=== PATIENT | female | born 1965 | race African-American/Black ===

== ENCOUNTER 2017-11-15 12:17 | Emergency (ER) | payer OTHER ==
[2017-11-15 12:33] VITALS: BP 143/78; PULSE 81; TEMP 97.9; BMI 44.4
--- NOTE | 2017-11-15 14:14 | PDOC ---
History of Present Illness - General Chief Complaint: Injury Stated Complaint: ANKLE PAIN (PCP SENT) Time Seen by Provider: 11/15/17 13:19 - History of Present Illness Initial Comments: 11/15/17 14:09 CHIEF COMPLAINT: L ankle pain HISTORY OF PRESENT ILLNESS: 52 yo obese F presents to fast track with pain to L ankle s/p "missing a step" 1 week ago. She is ambulatory and states that the pain is localized to "the soft area close to the bone." She denies any other symptoms. No recent travel or sick contacts. PAST MEDICAL HISTORY: Denies past medical history FAMILY HISTORY: Denies SOCIAL HISTORY: Denies tobacco, alcohol, illicit drug use. SURGICAL HISTORY: Denies ALLERGIES: No known drug allergies REVIEW OF SYSTEMS General/Constitutional:Denies weakness Cardiovascular: Denies shortness of breath. Musculoskeletal: L ankle pain. Denies joint or muscle swelling or pain. Denies neck or back pain. Neurologic: Denies loss of sensation. PHYSICAL EXAM General Appearance: Well-appearing, appropriately dressed. No apparent distress. HEENT: EOMI, PERRLA, normal ENT inspection, normal voice, TMs normal, pharynx normal. No conjunctival pallor. No photophobia, scleral icterus. Cardiovascular: RRR. S1, S2. Musculoskeletal/Extremities: Minimal tenderness to posterior L lateral malleolus , no swelling, ecchymosis, erythema. No tenderness to base of 5th metatarsal. No calf tenderness. Patient fully ambulatory. Normal inspection. FROM of all extremities, normal capillary refill. Pelvis Stable. Integumentary: Appropriate color, dry, warm. No cyanosis, erythema, jaundice or rash Neurologic: cardiology manager II-XII intact. Fully oriented, alert. Appropriate mood/affect. Motor strength 5/5. No appreciable EOM palsy, facial droop or sensory deficit. Past History - Past Medical History Allergies/Adverse Reactions: Allergies Allergy/AdvReac Type Severity Reaction Status Date / Time No Known Allergies Allergy Verified 11/15/17 12:33 Home Medications: Ambulatory Orders Diclofenac Sodium [Voltaren -] 75 mg PO BID #14 tablet. 11/15/17 COPD: No HTN: Yes - Suicide/Smoking/Psychosocial Hx Smoking History: Never smoked Hx Alcohol Use: No Drug/Substance Use Hx: No Substance Use Type: None *Physical Exam - Vital Signs Last Vital Signs Temp Pulse Resp BP Pulse Ox 97.9 F 81 16 143/78 99 11/15/17 12:31 11/15/17 12:31 11/15/17 12:31 11/15/17 12:31 11/15/17 12:31 ED Treatment Course - RADIOLOGY Radiology Studies Ordered: Category Date Time Status ANKLE & FOOT-LEFT* [RAD] Stat Radiology 11/15/17 12:56 Completed Medical Decision Making - Medical Decision Making 11/15/17 14:12 52 yo obese F presents to fast track with pain to L ankle s/p "missing a step" 1 week ago. L ankle x-ray x-ray negative Will discharge with NSAIDS, crutches, baylee bandage. Advised patient to take medication as prescribed and follow up with ortho next week. Advised patient of signs and symptoms for return to ED. Patient verbalized understanding and agrees to plan. *DC/Admit/Observation/Transfer Diagnosis at time of Disposition: Left ankle sprain - Discharge Dispostion Disposition: HOME Condition at time of disposition: Stable Admit: No - Prescriptions Prescriptions: Diclofenac Sodium [Voltaren -] 75 mg PO BID #14 tablet.dr - Referrals Referrals: Berto Ames MD [Staff Physician] - Michael Oglebsy MD [Staff Physician] - - Patient Instructions Printed Discharge Instructions: DI for Ankle Sprain, How To Perform RICE (Rest , Ice, Compress, Elevate) Additional Instructions: Please take medication as prescribed. As discussed, if your symptoms do not improve in 5-7 days, please follow up with an orthopedics for further evaluation and a possible MRI or physical therapy. If you experience any loss of sensation to your extremities, pain to your calf, or increased pain to your ankle, please return to the ER. - Post Discharge Activity
== END 2017-11-15 14:32 | disposition home or self-care (01) ==
LOC: JERFT 12:17
DX: S93.402A Sprain of unspecified ligament of left ankle, initial encounter (principal); X58.XXXA Exposure to other specified factors, initial encounter; Y93.89 Activity, other specified; Y92.9 Unspecified place or not applicable
CPT/HCPCS: 73610-TC-LT-FY; 73630-TC-LT; 99281-25

== ENCOUNTER 2020-05-28 12:52 | Emergency (ER) | payer OTHER ==
[2020-05-28 12:59] VITALS: BP 146/79; TEMP 97.4; BMI 45.6
--- NOTE | 2020-05-28 13:16 | PDOC ---
Attending Attestation - Resident Resident Name: Avinash Headley - HPI HPI: 05/28/20 14:03 Pt presents to the ED complaining of facial swelling and pain, along with pain in her L first molar. Denies fever, nausea or vomiting. Denies trismus, difficulty swallowing or breathing. Called PCP, who prescribed augmentin. She has taken three doses with no improvement. Presented to the ED because she was seen in urgent care and told that she might need IV antibiotics. - Physicial Exam PE: 05/28/20 14:17 Agree with resident exam. patient is alert and oriented and in no acute distress. + facial swelling that affects her L maxilla. no trismus. No tongue swelling. No drooling. - Medical Decision Making 05/28/20 14:22 Pt presents to the ED complaining of facial swelling and tooth pain without systemic signs of infection. No trismus or clear periapical abscess on exam. Symptoms are most consistent with dental abscess. Will start on clindamycin and discharge home with instructions to follow up with dental tomorrow. 05/28/20 14:23 Discharge - Discharge Information Problems reviewed: Yes Clinical Impression/Diagnosis: Tooth pain Condition: Stable Disposition: HOME - Additional Discharge Information Prescriptions: Clindamycin [Cleocin -] 300 mg PO Q8H 7 Days #21 capsule - Follow up/Referral Referrals: [facility] ([facility]) [Outside] Remi Cali DDS [Staff Physician] - Nate Anderson MD [Primary Care Provider] - Caroline Calhoun DDS [Non Staff, Medical] - Magdiel Patel DDS [Non Staff, Medical] - Fransisco Cancino DDS [Non Staff, Medical] - - Patient Discharge Instructions Patient Printed Discharge Instructions: DI for Dental Pain Additional Instructions: Please make an appointment with a dentist. Referrals are provided here. Information for the [facility] provided at the end of this page. Please take clindamycin 300 mg every 8 hours for 7 days, until you are able to see a dentist. Please take Motrin as needed for your pain (follow instructions on the package). If you experience any new, worsening, or concerning symptoms, including worsening swelling, tongue swelling, drooling, inability to breathe or swallow, fever, chills, or any other concerns, please return to the emergency department. [facility]: [facility]: [facility] and the [facility] dental clinics provide a full range of dental care from basic preventive services to the most complex surgical procedures. We have General Dentists, Pediatric Dentists and Oral and Maxillofacial Surgeons on-site every day. Additionally, we have the ability to provide advanced care in implants, endodontics (root canals), periodontics (gum disease) and dental anesthesiology (sedation dentistry). We have the most modern equipment including lasers, electronic dental records, digital xrays and cone beam CT scans. Our services include: Fillings Cleanings (prophylaxis) Pediatric Dental Services [facility] Cosmetic Dentistry- including bleaching and veneers Partial and Complete Dentures Dental Implants and Bone Grafting Periodontal treatment and periodontal surgery Endodontic (root canal) treatment Extractions including [place] teeth Apicoectomy (surgical root canal) Biopsies and treatment of Pathology and Infections Temporomandibular Disorder / Facial Pain treatment Management of Cleft Lip and Palate patients Orthognathic (Jaw) Surgery Facial Reconstruction Treatment of Mandibular and Facial Fractures IV Sedation Our mission is to serve the dental and oral health needs of the [place]. Through our clinics, emergency room coverage and in-patient care, we treat many different patients including those with special needs, the handicapped, and the medically compromised. For more information on our services, please contact one of our centers: [address] [place], [place] [address] General Dentistry, Pediatric Dentistry, and Oral / Maxillofacial Surgery Clinic For an appointment call: [facility] [address] [place] [id number] General Dentistry, Pediatric Dentistry, and Oral / Maxillofacial Surgery Clinic For an appointment call: - Post Discharge Activity
[2020-05-28] MEDS ORDERED: CLINDAMYCIN HCL 300 MG CAPSULE PO ONE ×2 (13:34→13:41)
--- NOTE | 2020-05-28 13:38 | PDOC ---
History of Present Illness - General Chief Complaint: Toothache Stated Complaint: TOOTHACHE Time Seen by Provider: 05/28/20 13:12 - History of Present Illness Initial Comments: Sri Lua is a 54 y/o female with PMH significant for HTN presenting today with tooth ache and left facial swelling. She has had a prior root canal of the left lower molar. She started having pain in tooth 10 and 14 starting on . Called her dentist and scheduled an appointment on 06/13. Over the weekend she started having swelling of the left cheek, which prompted her to go to urgent care and was subsequently sent in. Reports left sided cheek pain and swelling. She also called her PCP yesterday who phoned in an rx for augmentin. Took a leftover percocet she had from a few years ago with some pain relief. Denies fever/chills. Speaking in full sentences with her normal voice. No throat closing or tongue swelling. No bleeding or purulent discharge from the teeth. No shortness of breath. No nausea/vomiting. No chest pain. [facility] Past History - Medical History Allergies/Adverse Reactions: Allergies Allergy/AdvReac Type Severity Reaction Status Date / Time No Known Allergies Allergy Verified 05/28/20 12:59 Home Medications: Ambulatory Orders Diclofenac Sodium [Voltaren -] 75 mg PO BID #14 tablet. 11/15/17 Clindamycin [Cleocin -] 300 mg PO Q8H 7 Days #21 capsule 05/28/20 COPD: No HTN: Yes - Psycho-Social/Smoking History Smoking History: Never smoked - Substance Abuse Hx (Audit-C & DAST Scrn) How often the patient has a drink containing alcohol: Never Score: In Men: 4 or > Positive; In Women: 3 or > Positive: 0 Screen Result (Pos requires Nsg. Audit-10AR): Negative Review of Systems - Review of Systems Comments:: GENERAL/CONSTITUTIONAL: No fever or chills. No weakness._ HEAD, EYES, EARS, NOSE AND THROAT: No change in vision. No change in hearing. No sore throat. Reports left upper tooth pain and left cheek swelling. CARDIOVASCULAR: No chest pain or shortness of breath_ RESPIRATORY: Denies cough, hemoptysis_ GASTROINTESTINAL: No nausea, vomiting, diarrhea or constipation._ GENITOURINARY: No dysuria, frequency, or change in urination._ MUSCULOSKELETAL: No joint or muscle swelling or pain. No neck or back pain._ SKIN: No rash_ NEUROLOGIC: No headache, vertigo, loss of consciousness, or change in strength/sensation._ ENDOCRINE: No increased thirst. No abnormal weight change_ HEMATOLOGIC/LYMPHATIC: No anemia, easy bleeding, or history of blood clots._ ALLERGIC/IMMUNOLOGIC: No hives or skin allergy._ *Physical Exam - Vital Signs Last Vital Signs Temp Pulse Resp BP Pulse Ox 97.4 F L 111 H 18 146/79 99 05/28/20 12:54 05/28/20 12:54 05/28/20 12:54 05/28/20 12:54 05/28/20 12:54 - Physical Exam GENERAL: Awake, alert, and oriented to person/place/time, in no acute distress_ HEAD: No signs of trauma, normocephalic, atraumatic _ EYES: PERRLA, EOMI, sclera anicteric, conjunctiva clear_ ENT: Hearing grossly normal, nares patent, oropharynx clear without exudates. No uvular deviation. Moist mucosa. Cracked tooth #10 and #14. Left cheek swelling without streaking. No palpable abscess over the tooth, gum, or cheek. Speaking in full sentences. No stridor. No bleeding or purulent discharge. No tongue swelling or angioedema. No tooth fracture. No edema over the neck or floor of the mouth. NECK: Normal ROM, supple, no lymphadenopathy, JVD, or masses_ LUNGS: No distress, speaks in full sentences, clear to auscultation bilaterally _ HEART: Regular rate and rhythm, normal S1 and S2, no murmurs appreciated, peripheral pulses normal and equal bilaterally._ EXTREMITIES: Normal inspection, Normal range of motion, no edema. No clubbing or cyanosis_ NEUROLOGICAL: Cranial nerves II through XII grossly intact. Normal speech, normal gait, no focal sensorimotor deficits _ SKIN: Warm, Dry, normal turgor, no rashes or lesions noted_ Medical Decision Making - Medical Decision Making 54F hx of HTN presenting today with left upper tooth ache that started on with left cheek swelling that started over the weekend. She had called her dentist on Friday and made an appt. No signs of abscess or Bg's angina, stridor, or respiratory compromise. No throat swelling or tongue swelling. No indications for CT scan at this time. Will plan to d/c home with dentist f/u and referrals for this week. Given 1 percocet in the ER. Motrin for pain control. Will start on clindamycin for abx 300 mg TID 1 week. All questions answered. Return precautions given. Pt verb alized understanding and agreement with plan. Discharge - Discharge Information Problems reviewed: Yes Clinical Impression/Diagnosis: Tooth pain Condition: Stable Disposition: HOME - Admission No - Additional Discharge Information Prescriptions: Clindamycin [Cleocin -] 300 mg PO Q8H 7 Days #21 capsule - Follow up/Referral Referrals: [facility] ([facility]) [Outside] Remi Cali DDS [Staff Physician] - Nate Anderson MD [Primary Care Provider] - Caroline Calhoun DDS [Non Staff, Medical] - Magdiel Patel DDS [Non Staff, Medical] - Fransisco Cancino DDS [Non Staff, Medical] - - Patient Discharge Instructions Patient Printed Discharge Instructions: DI for Dental Pain Additional Instructions: Please make an appointment with a dentist. Referrals are provided here. Information for the [facility] provided at the end of this page. Please take clindamycin 300 mg every 8 hours for 7 days, until you are able to see a dentist. Please take Motrin as needed for your pain (follow instructions on the package). If you experience any new, worsening, or concerning symptoms, including worsening swelling, tongue swelling, drooling, inability to breathe or swallow, fever, chills, or any other concerns, please return to the emergency department. [facility]: [facility]: [facility] and the [facility] dental clinics provide a full range of dental care from basic preventive services to the most complex surgical procedures. We have General Dentists, Pediatric Dentists and Oral and Maxillofacial Surgeons on-site every day. Additionally, we have the ability to provide advanced care in implants, endodontics (root canals), periodontics (gum disease) and dental anesthesiology (sedation dentistry). We have the most modern equipment including lasers, electronic dental records, digital xrays and cone beam CT scans. Our services include: Fillings Cleanings (prophylaxis) Pediatric Dental Services [facility] Cosmetic Dentistry- including bleaching and veneers Partial and Complete Dentures Dental Implants and Bone Grafting Periodontal treatment and periodontal surgery Endodontic (root canal) treatment Extractions including [place] teeth Apicoectomy (surgical root canal) Biopsies and treatment of Pathology and Infections Temporomandibular Disorder / Facial Pain treatment Management of Cleft Lip and Palate patients Orthognathic (Jaw) Surgery Facial Reconstruction Treatment of Mandibular and Facial Fractures IV Sedation Our mission is to serve the dental and oral health needs of [facility]. Through our clinics, emergency room coverage and in-patient care, we treat many different patients including those with special needs, the handicapped, and the medically compromised. For more information on our services, please contact one of our centers: [address] [place], [place] [address] General Dentistry, Pediatric Dentistry, and Oral / Maxillofacial Surgery Clinic For an appointment call: [facility] [address] [place] [id number] General Dentistry, Pediatric Dentistry, and Oral / Maxillofacial Surgery Clinic For an appointment call: - Post Discharge Activity
[2020-05-28] MEDS ORDERED: CLINDAMYCIN HCL 150 MG CAPSULE (FP) ONE (13:55)
[2020-05-28 14:07] VITALS: PULSE 92
== END 2020-05-28 14:07 | disposition home or self-care (01) ==
LOC: JER 12:52
DX: K08.89 Other specified disorders of teeth and supporting structures (principal)
CPT/HCPCS: 99283-25